=== PATIENT | male | born 1980 | race Asian ===

== ENCOUNTER 2017-04-07 08:50 | Emergency (ER) | payer BC ==
[2017-04-07] MEDS: IBUPROFEN 800 MG TABLET. PO (10:27)
[2017-04-07] MEDS: ACETAMINOPHEN 500 MG TABLET PO (10:27)
[2017-04-07 10:40] LABS: INFLUENZA B PATIENT NEGATIVE (NEGATIVE)
[2017-04-07 10:41] LABS: INFLUENZA A PATIENT POSITIVE (NEGATIVE); OBC FLU VALID
== END 2017-04-07 11:05 | disposition home or self-care (01) ==
LOC: ER 08:50
DX: J09.X2 Influenza due to identified novel influenza A virus with other respiratory manifestations (principal)
CPT/HCPCS: 87804; 87804-59; 99284

== ENCOUNTER → 2019-05-31 | Outpatient (CLI) | payer BC ==
[2019-01-28 15:00] VITALS: BP 149/88
[~2019-05-31] MED LIST: AMLO5TAB10 PO; OSEL75CA PO
--- NOTE | 2019-05-31 16:26 | RAD ---
STUDY: Complete renal sonogram INDICATION: Proteinuria COMPARISON: 01/28/2019 TECHNIQUE: Real-time grayscale and color Doppler sonographic evaluation of both kidneys. The bladder was also evaluated. FINDINGS: Right kidney: The right kidney measures 12.6 cm in length. Cortical thickness and echogenicity is within normal limits. No hydronephrosis. Left kidney: The left kidney measures 12.2 cm in length. Normal cortical thickness and echogenicity. No hydronephrosis. Bladder: No bladder abnormality is appreciated. Limited assessment for ureteral jets due to bowel gas. Miscellaneous: Poorly visualized IVC and aorta due to bowel gas. IMPRESSION: 1. Unremarkable sonographic appearance of both kidneys. No significant interval change relative to 01/28/2019. 2. Poor assessment of the IVC, aorta and bladder due to bowel gas. Electronically signed by: JEFF CAGE MD (05/31/2019 4:23 PM) [id number]
== END | disposition home or self-care (01) ==
LOC: US 15:46
PROVIDERS: ATTEND Internal Medicine
DX: R80.9 Proteinuria, unspecified (principal)
CPT/HCPCS: 76770